=== PATIENT | male | born 1970 | race Caucasian/White ===

== ENCOUNTER → 2021-04-06 08:15 | Outpatient (BNVA) | payer OTHER, SELFPAY | PROVIDERS: Visit Provider Surgery | DX: Z12.11 Encounter for screening for malignant neoplasm of colon (principal); Z20.822 Contact with and (suspected) exposure to COVID-19 | CPT/HCPCS: 87635 ==

== ENCOUNTER 2021-04-10 08:11 | Day surgery (SDC) | payer OTHER, SELFPAY ==
[2021-04-07 14:06] VITALS: BMI 23.7
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
[2021-04-10 08:45] VITALS: BP 134/77; PULSE 67; RESP 16; TEMP 36.3; O2SAT 94
[2021-04-10] MEDS: sodium chloride 0.9% 1,000 ML 30 ML IV (09:06)
--- NOTE | 2021-04-10 10:04 | W.PM.OPSUD ---
Surgery/Procedure H&P Update DATE OF PROCEDURE: April 10, 2021 DATE H&P PERFORMED: 03/17/21 H&P UPDATE INFORMATION: I have reviewed H&P completed within last 30 days, I have examined patient prior to procedure and No changes to prior documentation PREOP DIAGNOSIS: screening colonoscopy PLANNED PROCEDURE: Operation Date: 04/10/21 09:30 Proposed Procedures p Colonoscopy 65802 R19.7(Not Applicable) - Jama Shankar MD
[2021-04-10 10:32] VITALS: BP 117/81; PULSE 66; RESP 16; TEMP 36.1; O2SAT 99
[2021-04-10 10:42] VITALS: BP 122/90; PULSE 70; RESP 18; O2SAT 98
--- NOTE | 2021-04-10 15:51 | ANE.PACU2 ---
Inpatient post-anesthesia follow up: Airway intact: Yes Vital signs: Temperature 97.0 F Pulse Rate 70 Respiratory Rate 18 Blood Pressure 122/90 Pulse Oximetry 98 Oxygen Delivery Me thod Room Air Oxygen Flow Rate 4 Fraction of Inspir ed Oxygen Hydration adequate: Yes Nausea and vomiting: No Pain level: 1 Mental status: Baseline
== END 2021-04-10 08:53 | disposition home or self-care (01) ==
PROVIDERS: PCP Family Medicine; Visit Provider Surgery
PROC: 0DJD8ZZ Inspection of Lower Intestinal Tract, Via Natural or Artificial Opening Endoscopic (ICD-10-PCS; CPT 45378; principal; 2021-04-10 09:30)
DX: R19.7 Diarrhea, unspecified (principal); Z87.891 Personal history of nicotine dependence; J44.9 Chronic obstructive pulmonary disease, unspecified; F32.9 Major depressive disorder, single episode, unspecified; Z86.19 Personal history of other infectious and parasitic diseases; K57.30 Diverticulosis of large intestine without perforation or abscess without bleeding; D12.5 Benign neoplasm of sigmoid colon; K64.8 Other hemorrhoids
CPT/HCPCS: 45385; 88305; 96360; 96361; J2704; J7030

== ENCOUNTER 2022-01-25 17:52 | Emergency (ER) | payer OTHER, SELFPAY ==
[2022-01-25 18:13] VITALS: BP 102/69; PULSE 73; RESP 16; TEMP 36.8; O2SAT 97
[2022-01-25 23:39] VITALS: BP 123/73; PULSE 69; RESP 17; TEMP 36.6; O2SAT 100
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
[2022-01-26 00:27] LABS: Basophils % 0.3 %; Eosinophils # 0.2 10^3/uL (0.0-0.8); Eosinophils % 3.1 %; Hematocrit 45.2 % (42.0-52.0); Hemoglobin 14.4 g/dL (11.7-16.6); Lymphocytes # 1.8 10^3/uL (0.8-4.8); Lymphocytes % 27.3 %; Mean Corpuscular HGB Conc 31.9 g/dL (30.0-36.0); Mean Corpuscular Hemoglobin 32.3 pg (28.0-34.0); Mean Corpuscular Volume 101.3 fl (80-94); Mean Platelet Volume 10.1 fL (7.4-10.4); Monocytes # 0.6 10^3/uL (0.2-0.9); Monocytes % 9.4 %; Neutrophils # 3.87 10^3/uL (1.8-7.7); Neutrophils % 59.4 %; Nucleated Red Blood Cells % 0 %; Platelet Count 195 10^3/cmm (130-400); Red Blood Count 4.46 10^6/uL (4.1-5.3); Red Cell Distribution Width 13.5 % (12.1-15.1); White Blood Count 6.5 10^3/uL (4.0-10.0)
[2022-01-26 00:28] VITALS: BP 135/93; PULSE 80; RESP 17; O2SAT 97
[2022-01-26] MEDS: ketorolac 30 mg/mL INJ 15 MG IVP (00:39)
[2022-01-26 00:41] LABS: Alanine Aminotransferase 11 U/L (0-41); Albumin Level 4.1 g/dL (3.5-5.2); Alkaline Phosphatase 51 IU/L (40-130); Anion Gap 12.8 (5-19); Aspartate Amino Transferase 14 U/L (0-40); Blood Urea Nitrogen 14 mg/dL (6-20); Carbon Dioxide 28 mmol/L (22-29); Chloride 103 mmol/L (98-107); Globulin 2.7 g/dL (1.3-4.6); Glomerular Filtration Rate 102.3 mL/min (90-130); Glucose 116 mg/dL (65-115); Lipase 40 U/L (13-60); Osmolality Calculated 291 mOsm/kg (285-295); Potassium 3.8 mmol/L (3.5-5.1); Sodium 140 mmol/L (136-145); Total Bilirubin 0.2 mg/dL (0.15-1.2); Total Protein 6.8 g/dL (6.6-8.7)
[2022-01-26 00:58] VITALS: BP 140/90; PULSE 78; RESP 18; O2SAT 99
[2022-01-26] MEDS: iohexol 350 mg/mL 100 mL Btl IV (01:19)
[2022-01-26 02:46] VITALS: BP 142/95; PULSE 82; RESP 19; O2SAT 97
[2022-01-26 03:22] LABS: Add Urine Microscopic? NO; Charge for UA Resulting for Rev
[2022-01-26 03:30] LABS: Bilirubin Urine Neg (Negative); Blood Urine Neg (Negative); Glucose Urine UA Norm (Normal); Ketones Urine Negative (Negative); Leukocyte Esterase Urine Negative (Negative); Nitrate Urine Negative (Negative); Protein Urine Neg (Negative); Specific Gravity, Urine 1.015 (1.005-1.030); Urine Appearance Clear (CLEAR); Urine Color Yellow (Yellow); Urobilinogen Urine Norm (Negative); pH Urine 6 (5-7)
[2022-01-26 03:46] VITALS: BP 122/76; PULSE 71; RESP 19; TEMP 36.6; O2SAT 95
[2022-01-26 03:48] VITALS: BP 122/76; PULSE 71; RESP 19; TEMP 36.6; O2SAT 95
== END 2022-01-26 03:49 | disposition home or self-care (01) ==
PROVIDERS: Physician Assistant; Emergency Provider Emergency Medicine; PCP Family Medicine
DX: R10.9 Unspecified abdominal pain (principal); Z86.19 Personal history of other infectious and parasitic diseases; Z87.891 Personal history of nicotine dependence
CPT/HCPCS: 74177; 80053; 81003; 83690; 85025; 96374; 99285; J1885; Q9967

== ENCOUNTER → 2023-09-19 07:52 | Outpatient (BNVA) | payer OTHER, SELFPAY | PROVIDERS: PCP Family Medicine; Visit Provider Physician Assistant | DX: L08.9 Local infection of the skin and subcutaneous tissue, unspecified; L03.011 Cellulitis of right finger | CPT/HCPCS: 73130; 99204 ==

== ENCOUNTER 2023-09-19 12:46 | Day surgery (SDC) | payer OTHER, SELFPAY ==
[2023-09-19] VITALS (13 sets, daily range): BP systolic 107–135; BP diastolic 63–90; PULSE 68–80; RESP 16–18; TEMP 36.7–37; O2SAT 92–97; BMI 22.2
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
[2023-09-19] MEDS: sodium chloride 0.9% 1,000 ML 30 ML IV (13:57)
[2023-09-19] MEDS: fentaNYL 50 mcg/mL INJ 2mL IVP ×2 (14:00→17:42)
[2023-09-19] MEDS: ketorolac 30 mg/mL INJ IVP (15:50)
[2023-09-19] MEDS: acetaminophen 1,000 MG/100 ML PIGGYBACK 400 MG IV (15:53)
--- NOTE | 2023-09-19 17:29 | P.HPUD_ITS ---
Surgery/Procedure H&P Update DATE OF PROCEDURE: September 19, 2023 DATE H&P PERFORMED: 09/19/23 H&P UPDATE INFORMATION: I have reviewed H&P completed within last 30 days, I have examined patient prior to procedure and No changes to prior documentation CHANGES TO PREVIOUS DOCUMENTATION: Patient was seen and examined by myself in the PACU this was added on by my PA and agree with assessment and plan. Upon my evaluation with patient history vannesa gustafson smashed his fingers roughly 6 months ago of his right index finger. He had significant swelling as well as some decreased function but he continued just to work and leave this alone. He is continue to have dysfunction of this digit. Today he is presented to our clinic after being referred urgently [facility] for having 2 weeks of patient had flagrant pus draining out the distal fingertip. Gabrielle is not acutely ill or septic. His whole finger is significantly swollen fusiform swelling. On my examination his right index finger is significantly contracted he has no motion at the DIP joint and only 10 to 15 degrees of the PIP joint and has about 20 to 40 degrees of the MP joint. He has tenderness at the tip with previous wound at the fingertip with yellow crusted eschared skin at the distal tip. He is significantly tender in this area and tender palpating along the flexor tendon sheath up to about P1. At his A1 la he does not have much in the way of tenderness to palpation but he does have pain with passive range of motion of any outs of his small finger. He has erythema up to about the PIP joint but no proximal tracking erythema no tenderness over the carpal tunnel. At this point in time I think he has a unique situation of a chronic injury with possibly acute on chronic infection of the right index finger his x-rays do show what appears to be changes concerning for possible distal phalanx osteomyelitis. Given his history I feel this is likely the case. On my examination I worry of flexor tendon involvement. And I talked about his treatment options in detail we talked about doing nothing versus from a surgical standpoint just a pure I&D we talked about possibly doing an amputation just at the DIP joint and possibly an I&D proximally and then talked about possible ray resection. He states this finger has been like a dewclaw finger to him here and he would essentially just like to have it removed and get back to work. He does understand with salvage procedures of his infection likely a admission with IV antibiotics would likely be ideal but he would like to hold off on this. This point in time through shared decision making he like to proceed with right index finger with possible amputation. Patient states if the infection tracks at all approximately to the level of the PIP joint he would rather just do the ray resection to get rid of the infection. As result through shared decision making and through our preoperative discussion he like to leave it up to her intraoperative findings and we are in agreements with this together. Will proceed with a right index finger I&D with possible amputation. All questions answered at this time. PREOP DIAGNOSIS: Right index finger infection PRIMARY INDICATION FOR PROCEDURE: Right index finger infection complicated felon with possible flexor tenosynovitis and osteomyelitis PLANNED PROCEDURE: Operation Date: 09/19/23 17:20 Proposed Procedures p Right Index Finger Incision and Drainage-Possible revision amputation(Right) - Kedar Monaco DO
[2023-09-19] MEDS: ceFAZolin 2,000 MG in sodium chloride 0.9% (plus) 50 ML 100 MG IV (17:57)
[2023-09-19] MEDS: BUPivacaine 0.5% INJ 30 mL 10 ML XX (18:15)
--- NOTE | 2023-09-19 18:33 | SUR.OPER ---
1814 dr. lua injected 10ml 1% lidocaine into right hand for 2nd digit block
--- NOTE | 2023-09-19 18:58 | W.PM.BPON ---
Date of Procedure: 09/19/2023 Surgeon: Kedar Monaco DO Ortho Tech(s): Sahil Monaco PA-C Procedure(s) performed: Right index finger DIP joint disarticulation/amputation Right index finger trigger finger release with irrigation debridement Findings of the procedure(s): Patient was found to have fabio pus along the finger pulp extending into the bone consistent with osteomyelitis given the soft bone quality of the distal phalanx of the right index finger this point in time this is completely compromises entire distal phalanx and as result decision was made to perform a fishmouth disarticulation of the DIP joint. Once this was performed I then cleaned the area as this was taken to stable tissue I then tried to dissect further proximally and there was no fabio purulence along the tendon sheath proximally at the middle phalanx and just proximal to the PIP. Next I then using new instrumentation made a small incision over the A1 la of the right index finger to evaluate for any flexor tenosynovitis. Patient had no purulence or any signs of infection proximally as a result trigger release was performed and irrigation performed and patient underwent procedure as dictated without any complications or issues will go home on oral antibiotics. Estimated blood loss: 2.5 mL Specimen(s) removed: Cultures taken of purulence of abscess of the right index finger as well as distal fingertip distal phalanx amputation sent for pathology's concerns for osteomyelitis Post-operative diagnosis: Right index finger complicated felon with osteomyelitis
--- NOTE | 2023-09-19 19:02 | P.OP_ITS ---
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 Post-op diagnosis: Right index finger felon with distal phalanx osteomyelitis no tracking into the flexor tendon sheath, no flexor tenosynovitis Procedure done: Right index finger DIP joint disarticulation/amputation Right index finger trigger finger release with irrigation debridement Specimens removed/disposition: Cultures of abscess of right index finger felon cultured and sent specimen of am putated DIP joint Pathology: Amputation right index finger at DIP joint Surgeon: Kedar Monaco DO [employer] Architect: Sahil Monaco PA-C: RAVI was necessary for assistance in this case with hand positioning to execute the procedure, retraction and protection of neurovascular structures as well as to assist with wound closure and dressing application. Anesthesia: General Estimated blood loss: 2.5mL 35min IV fluids: See anesthesia record Complications: None Findings: See operative report Condition: stable Disposition: same day Brief History: Patient is a 53-year-old male who was [facility] by [facility] in urgent fashion for evaluation of complicating right index finger infection. Concern for proximal tracking and osteomyelitis was saw and evaluated patient this morning is been n.p.o. since midnight he does have a complicated felon with concerning findings of osteomyelitis he has slight tenderness at the A1 la and pain with passive extension of the digit. As result we talked about his treatment options in detail as far as nonoperative and operative intervention. In order to prevent any further spread we talked about right index finger irrigation debridement with possible amputation. He understands and Zetts procedure the risk benefits complication alternatives of surgery through shared decision-making elects proceed with surgical invention all questions answered at this time. Procedure: Patient seen evaluated in the preoperative holding area. Consent was reviewed and signed with patient correct extremity was then marked/digit. Patient was then seen evaluated anesthesia was cleared for surgery was taken back to the operative suite. Patient was kept on hospital gurney armboard applied to the right upper extremity patient then subsequently had a nonsterile tourniquet applied to the right upper arm. Patient underwent anesthesia per the anesthesia department appropriate anesthetized patient had a nonsterile tourniquet applied to the right upper arm. He was ultimately prominences well-padded patient appropriate secured to the bed. He then had the right upper extremity prepped and draped in standard orthopedic fashion. Final timeout performed. Patient received appropriate preoperative antibiotics. Esmarch tourniquet used exsanguinate right upper extremity tourniquet insufflated to 250 mmHg./ I subsequently marked out multiple incisions and plan of sequentially I&D in the finger and progressing to amputations if necessary given the proximal infection if there was one as this was discussed with me the patient preoperatively. I started off with decompressing the felon and oblique pattern that I could perform a disarticulation at the DIP joint. Sharp scalpel excision was then subsequently made and fabio purulence was noted and subsequently cultured with aerobic and anaerobic cultures. I then subsequently spread my Littler dissection scissors and felt extremely soft bone that already had significant erosive changes in the bone broke just on simple spreading of the dissection scissors consistent with significant osteomyelitis at this point was clearly evident the distal phalanx was compromised and a DIP disarticulation was performed with sharp scalpel excision excising both the extensor and flexor te ndons under tension as well as performing traction neurectomies. When to perform this at the DIP joint the DIP joint was actually found to have good integrity and no softening of the middle phalanx. I was in to stable margins and no infectious tissue was noted proximally there was no proximal tracking infection within the flexor tendon sheath. At this point in time the amputated DIP disarticulation digit was then sent for definitive specimen with pathology. I then thoroughly irrigated this. The amputation was performed with a standard fishmouth incision over the DIP joint with appropriate skin flaps to close. I then subsequently utilized a rongeur to remove the cartilage and the condyles to have appropriate contouring of the digit at the amputation site of the DIP disarticulation. I then utilized a rasp around at the edges at this point findings were encouraging that there was not much in the way of true proximal tracking infection. I then subsequently thoroughly irrigated the fingertip as well as changed our gloves as well as dissection instrumentation and then subsequently planned for a sterile release and opening of the A1 la at the base of the hand in oblique fashion to evaluate any fluid within the flexor tendon sheath. Next made a standard oblique fashion over the A1 la sharp scalpel incision was made through skin only switch to Littler dissection scissors spread longitudinally along the neurovascular bundles this was protected by my operations assistant with cancer retractors. I then came over the A1 la A1 la good integrity there was no signs of infection subcutaneously I then released the A1 la and the flexor tendon sheath had no signs of infection no evidence of tendon irritation inflammation or infection. There was no purulence that of the flexor tendon sheath only a small amount of normal synovial fluid was appreciated at this point in time it was evident there is no proximal tracking or flexor tenosynovitis then subsequently thoroughly irrigated the wound bed in this area and plan to proceed with finalized closure. Tourniquet was deflated hemostasis was satisfactory bipolar electrocautery. I then subsequently closed each incision starting approximately the A1 la release and irrigation site was closed with interrupted nylon suture distally I then closed the fishmouth incision with interrupted nylon suture in standard fashion to allow for appropriate contouring. This point time the incisions were then covered with Xeroform 4 x 4's fluffs Curlex Ruthie wrap and an Ravi wrap. Patient was then awakened from anesthesia and taken back in stable condition. Disposition: Patient taken to PACU in stable condition recovering well pain controlled. Patient received appropriate discharge structure as well as pain medication as well as antibiotic infection prophylaxis we will continue to monitor cultures and adjust antibiotics appropriately if needed. Will follow-up with the patient in the office in 2 weeks for suture removal. Patient understands agrees current plan. Questions answered.
--- NOTE | 2023-09-19 19:09 | PM.PACU ---
PACU note Narrative: Patient is a 53-year-old male that has right index finger I&D. Patient transferred to PACU in stable condition. Pain is well controlled. Dressing on hand is dry and in place. Patient's fingers are warm and well-perfused. Patient can wiggle fingers. normal cap refill under 2 seconds. Patient has normal elbow range of motion. Unable to assess sensation due to residual localized anesthetic. Exam: awake Disposition: discharged
[2023-09-19] MEDS: oxyCODONE-APAP 10-325 mg Tablet 1 TAB PO (20:12)
--- NOTE | 2023-09-19 20:25 | ANE.PACU2 ---
Inpatient post-anesthesia follow up: Airway intact: Yes Vital signs: Temperature 98.5 F Pulse Rate 68 Respiratory Rate 18 Blood Pressure 135/82 Pulse Oximetry 97 Oxygen Delivery Me thod Room Air Oxygen Flow Rate Fraction of Inspir ed Oxygen Hydration adequate: Yes Nausea and vomiting: No Pain level: 1 Mental status: Baseline
== END 2023-09-19 20:24 | disposition home or self-care (01) ==
PROVIDERS: PCP Family Medicine; Visit Provider Student in an Organized Health Care Education/Training Program
PROC: (CPT 26055; principal; 2023-09-19 17:10)
PROC: (CPT 26055; 2023-09-19 17:10)
PROC: (CPT 26951; 2023-09-19 17:10)
DX: L03.011 Cellulitis of right finger (principal); M65.321 Trigger finger, right index finger; Z86.19 Personal history of other infectious and parasitic diseases; F17.200 Nicotine dependence, unspecified, uncomplicated
CPT/HCPCS: 26055; 26951; 87070; 87075; 87077; 87186; 87205; 88305; 88311; J0131; J0690; J1100; J1885; J2405; J2704; J3010; J3490; J7030

== ENCOUNTER 2023-10-08 06:00 | Outpatient (CLI) | payer OTHER, SELFPAY | END 2023-10-08 23:59 | disposition home or self-care (01) | LOC: SOT 10-10 08:19 | PROVIDERS: Visit Provider Student in an Organized Health Care Education/Training Program | DX: Z46.89 Encounter for fitting and adjustment of other specified devices (principal); S68.620D Partial traumatic transphalangeal amputation of right index finger, subsequent encounter; X58.XXXD Exposure to other specified factors, subsequent encounter; L03.011 Cellulitis of right finger; L08.9 Local infection of the skin and subcutaneous tissue, unspecified | CPT/HCPCS: 97760; 99213; L3925 ==

== ENCOUNTER 2023-10-15 10:35 | Outpatient (RCR) | payer OTHER, SELFPAY | END 2023-10-22 23:59 | disposition home or self-care (01) | LOC: SOT 10:35 | PROVIDERS: PCP Family Medicine; Visit Provider Student in an Organized Health Care Education/Training Program | DX: Z47.81 Encounter for orthopedic aftercare following surgical amputation (principal); Z89.021 Acquired absence of right finger(s) | CPT/HCPCS: 97110; 97165; 97530 ==

== ENCOUNTER 2023-10-23 06:00 | Outpatient (RCR) | payer OTHER, SELFPAY | END 2023-11-22 23:59 | disposition home or self-care (01) | LOC: SOT 06:00 | PROVIDERS: PCP Family Medicine; Visit Provider Student in an Organized Health Care Education/Training Program | DX: Z47.89 Encounter for other orthopedic aftercare (principal) | CPT/HCPCS: 97022; 97110; 97140 ==

== ENCOUNTER 2023-11-23 06:00 | Outpatient (RCR) | payer OTHER, SELFPAY | END 2023-12-22 23:59 | disposition home or self-care (01) | LOC: SOT 06:00 | PROVIDERS: PCP Family Medicine; Visit Provider Student in an Organized Health Care Education/Training Program | DX: Z47.81 Encounter for orthopedic aftercare following surgical amputation (principal); Z89.021 Acquired absence of right finger(s) | CPT/HCPCS: 97022; 97110; 97140 ==

== ENCOUNTER → 2023-12-03 13:29 | Outpatient (BNVA) | payer OTHER, SELFPAY | PROVIDERS: PCP Family Medicine; Visit Provider Student in an Organized Health Care Education/Training Program | DX: L08.9 Local infection of the skin and subcutaneous tissue, unspecified (principal) | CPT/HCPCS: 99213 ==

== ENCOUNTER 2023-12-23 06:00 | Outpatient (RCR) | payer OTHER, SELFPAY | END 2024-01-22 23:59 | disposition home or self-care (01) | LOC: SOT 06:00 | PROVIDERS: PCP Family Medicine; Visit Provider Student in an Organized Health Care Education/Training Program | DX: Z47.89 Encounter for other orthopedic aftercare (principal) | CPT/HCPCS: 97022; 97110; 97140 ==

== ENCOUNTER 2024-01-23 06:00 | Outpatient (RCR) | payer OTHER, SELFPAY | END 2024-02-22 23:59 | disposition home or self-care (01) | LOC: SOT 06:00 | PROVIDERS: PCP Family Medicine; Visit Provider Student in an Organized Health Care Education/Training Program | DX: S63.290A Dislocation of distal interphalangeal joint of right index finger, initial encounter (principal); X58.XXXA Exposure to other specified factors, initial encounter | CPT/HCPCS: 97022; 97110; 97140 ==

== ENCOUNTER → 2024-03-03 13:48 | Outpatient (BNVA) | payer OTHER, SELFPAY | PROVIDERS: PCP Family Medicine; Visit Provider Student in an Organized Health Care Education/Training Program | DX: L08.9 Local infection of the skin and subcutaneous tissue, unspecified (principal) | CPT/HCPCS: 99213 ==

== ENCOUNTER 2025-01-22 14:14 | Outpatient (CLI) | payer OTHER, SELFPAY ==
--- NOTE | 2025-01-22 14:23 | CTR_ITS ---
PROCEDURE INFORMATION: Exam: CT Chest With Contrast; Diagnostic Exam date and time: 01/22/2025 2:32 PM Age: 55 years old Clinical indication: Condition or disease; Lung condition and disease; Pulmonary nodule, solitary; Additional info: Follow up lung nodule R middle lobe 7mm TECHNIQUE: Imaging protocol: Diagnostic computed tomography of the chest with contrast. Radiation optimization: All CT scans at this facility use at least one of these dose optimization techniques: automated exposure control; mA and/or kV adjustment per patient size (includes targeted exams where dose is matched to clinical indication); or iterative reconstruction. Contrast material: OMNI 350; Contrast volume: 80 ml; Contrast route: INTRAVENOUS (IV); COMPARISON: CT angio chest w abd pel w con 09/29/2024 12:02 PM RADIATION DOSE METRICS: Total DLP (mGy-cm): 347.83 FINDINGS: Lungs: Unchanged 6 mm nodule medially in the right middle lobe, image 58 of series 5. Unchanged 3 mm nodule anteriorly in the right lower lobe, image 56 series 5. Unchanged 3 mm posterior right upper lobe nodule, image 37 of series 5. No infiltrates. Bullous changes and subpleural blebs are again noted. Pleural spaces: Unremarkable. No pneumothorax. No pleural effusion. Heart: Unremarkable. No cardiomegaly. No pericardial effusion. Lymph nodes: Unchanged 15 mm right suprahilar calcified node. No enlarged lymph nodes. Vasculature: Unremarkable. No aortic aneurysm. Liver: Hepatic steatosis persists. Calcified granulomas again spleen. Bones/joints: Old healed left-sided rib fractures. No suspicious osseous lesions. Soft tissues: Unremarkable. CT/CT chest w con* [id number] IMPRESSION: 1. Unchanged 6 mm right middle lobe nodule. For patients at low risk (minimal or absent history of smoking and of other known risk factors), recommend CT Chest at 6-12 months, then consider CT Chest at 18-24 months. For patients at high risk (history of smoking or of other known risk factors), recommend CT Chest at 6-12 months, then CT Chest at 18-24 months. (Reference: Elder) 2. Pulmonary changes of COPD. 3. Hepatic steatosis REFERENCES: Elder Brewer, et al. Guidelines for Management of Incidental Pulmonary Nodules Detected on CT Images: From the Fleischner Society 2017. Radiology. 2017;284(1):228-243.
[2025-01-22] MEDS: iohexol 350 mg/mL 500 mL Btl (per mL) IV (14:39)
== END 2025-01-22 14:15 | disposition home or self-care (01) ==
LOC: RAD 14:15
PROVIDERS: PCP Family Medicine; Visit Provider Family Medicine
DX: Z01.89 Encounter for other specified special examinations (principal); Z87.891 Personal history of nicotine dependence; F12.90 Cannabis use, unspecified, uncomplicated; R91.8 Other nonspecific abnormal finding of lung field; J98.4 Other disorders of lung; D73.89 Other diseases of spleen; K76.0 Fatty (change of) liver, not elsewhere classified; Z87.81 Personal history of (healed) traumatic fracture; J44.9 Chronic obstructive pulmonary disease, unspecified
CPT/HCPCS: 71260